=== PATIENT | female | born 2005 | race Caucasian/White ===

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

== ENCOUNTER 2024-10-03 22:02 | Emergency (ER) | payer MEDICAID, OTHER ==
[~2024-10-03] VITALS: Ht 160 cm; Wt 63.6 kg
[2024-10-03 22:03] VITALS: TEMP 98.3
[2024-10-04] MEDS: ibuprofen tablet 400 MG TABLET PO ONE (03:03)
[2024-10-04] MEDS: acetaminophen 325mg tablet PO ONE (03:04)
[2024-10-04 03:21] VITALS: BP 105/72; PULSE 73; RESP 15; O2SAT 100
== END 2024-10-04 03:28 | disposition home or self-care (01) ==
LOC: ER 22:03
DX: S93.491A Sprain of other ligament of right ankle, initial encounter (principal); Z88.0 Allergy status to penicillin; Z88.2 Allergy status to sulfonamides; W17.89XA Other fall from one level to another, initial encounter; Y93.89 Activity, other specified; Y92.89 Other specified places as the place of occurrence of the external cause; Y99.8 Other external cause status
CPT/HCPCS: 73630; 99283; L1930